=== PATIENT | female | born 1995 | race Two or more races ===

== ENCOUNTER 2018-08-12 08:03 | Emergency (ER) | payer OTHER ==
[2018-08-12] MEDS ORDERED: IBUPROFEN 600 MG TABLET PO ONE (09:09)
--- NOTE | 2018-08-12 09:14 | ER Document Report ---
ED General - General Chief Complaint: Back Pain Stated Complaint: BACK PAIN Time Seen by Provider: 08/12/18 08:45 TRAVEL OUTSIDE OF THE [place] IN LAST 30 DAYS: No - HPI Notes: Patient is a 23-year-old female that presents to the emergency department for chief complaint of back pain. Patient has had left-sided back pain radiating into her left buttocks and left posterior thigh for the last week. It is worse with ambulation and sitting on her left side. She denies injury or trauma. She has tried Epsom salts at home with some relief. She has not taken any [id number] medications. She denies history of injury or trauma. She denies fever, chills, numbness, weakness, saddle anesthesia, and bowel or bladder incontinence. Past Medical History: Negative Past Surgical History: Negative Social History: Occasional tobacco, occasional alcohol Family History: Reviewed and noncontributory for presenting illness Allergies: Reviewed, see documented allergy list. REVIEW OF SYSTEMS: CONSTITUTIONAL : No fever No chills No diaphoresis No recent illness EENT: No vision changes No congestion No sore throat CARDIOVASCULAR: No chest pain No palpitations RESPIRATORY: No shortness of breath No cough No difficulty breathing GASTROINTESTINAL: No abdominal pain No nausea No vomiting No diarrhea GENITOURINARY: No dysuria No hematuria No difficulty urinating MUSCULOSKELETAL: back pain No leg pain No arm pain SKIN: No rashes No lesions LYMPHATIC: No swollen, enlarged glands. NEUROLOGICAL: No lightheadedness No headache No weakness No paresthesias PSYCHIATRIC: No anxiety No depression PHYSICAL EXAMINATION: Vital signs reviewed, nursing noted reviewed. GENERAL: Well-appearing, well-nourished and in no acute distress. HEAD: Atraumatic, normocephalic. EYES: Eyes appear normal, extraocular movements intact, sclera anicteric, conjunctiva are normal. ENT: nares patent, oropharynx clear without exudates. Moist mucous membranes. NECK: Normal range of motion, supple without lymphadenopathy back: No midline or paraspinal tenderness thoracic and lumbar spine. Normal range of motion. LUNGS: Breath sounds clear to auscultation bilaterally and equal. No wheezes rales or rhonchi. HEART: Regular rate and rhythm without murmurs ABDOMEN: Soft, nontender, normoactive bowel sounds. No rebound, guarding, or rigidity. No masses appreciated. EXTREMITIES: Nontender, good range of motion, no pitting or edema. Left gluteal tenderness NEUROLOGICAL: No focal neurological deficits. Moves all extremities spontaneously Motor and sensory grossly intact on exam. PSYCH: Normal mood, normal affect. SKIN: Warm, Dry, normal turgor, no rashes or lesions noted on exposed skin - Related Data Allergies/Adverse Reactions: No Known Allergies Allergy (Unverified 08/12/18 08:44) Past Medical History - Social History Smoking Status: Current Some Day Smoker Family History: Reviewed & Not Pertinent Patient has suicidal ideation: No Patient has homicidal ideation: No Renal/ Medical History: Denies: Hx Peritoneal Dialysis Review of Systems - Review of Systems Notes: Dictated Physical Exam - Vital signs Vitals: Temp Pulse Resp BP Pulse Ox 98.8 F 82 16 111/68 100 08/12/18 08:07 08/12/18 08:07 08/12/18 08:07 08/12/18 08:07 08/12/18 08:07 - Notes Notes: Dictated Course - Re-evaluation Re-evalutation: 08/12/18 09:12 Vitals reviewed. Nursing notes reviewed. Patient symptoms consistent with sciatica. She has no focal neurologic deficits and is able to ambulate. She will be started on anti-inflammatories and was counseled on stretching and heat therapy. She will be referred to family medicine for follow-up if symptoms are not improving. She will return for new or worsening symptoms. Discharged home in stable condition - Vital Signs Vital signs: Temp Pulse Resp BP Pulse Ox 98.8 F 82 16 111/68 100 08/12/18 08:07 08/12/18 08:07 08/12/18 08:07 08/12/18 08:07 08/12/18 08:07 Discharge - Discharge Clinical Impression: Sciatica Qualifiers: Laterality: left Qualified Code(s): M54.32 - Sciatica, left side Condition: Stable Disposition: HOME, SELF-CARE Instructions: Sciatica ([facility]), Family Physicians / Practices Additional Instructions: Please return to the emergency department if you have any worsening, or concern of your symptoms. Please return to the emergency department if you develop chest pain, difficulty breathing, severe abdominal pain, or ongoing vomiting. Please follow-up with your primary care physician in 2-3 days and any other recommended physicians. If prescribed, take all medications as directed. If you have any questions or concerns do not hesitate to return the emergency department for evaluation. [] Prescriptions: Ibuprofen 600 mg PO Q6 #20 tablet
[2018-08-12 09:55] VITALS: BP 101/62
== END 2018-08-12 09:46 | disposition home or self-care (01) ==
LOC: ER 08:03
DX: M54.32 Sciatica, left side (principal); M54.9 Dorsalgia, unspecified; F17.200 Nicotine dependence, unspecified, uncomplicated
CPT/HCPCS: 99283